=== PATIENT | female | born 1930 | race Caucasian/White ===

== ENCOUNTER → 2017-01-18 | Day surgery (SDC) | payer OTHER ==
[~2017-01-18] MED LIST: ACETAMINOPHEN/HYDROcodone 325 MG/5 MG TAB ONE; BUPIVACAINE/EPINEPHRINE 0.5% PF 30 ML VIAL ONE; CALC600T34 PO; CAPT25TA2 PO; KETOROLAC TROMETHAMINE 30 MG/ML (IVP) VIAL IV PUSH ONE; LACTATED RINGER'S 1000 ML INJ 1,000 ML ONE; LIDOCAINE 1.5%/EPINEPHrine 1:200,000 PF SOLN 30 ML AMP ONE; MIDAZOLAM HCL 2 MG/2 ML VIAL ONE; PROPOFOL 100 MG/10 ML INJ IV ONE; RALO1TAB13 PO; ZOCO40TA PO; ceFAZolin 2 GM PREMIX 50 ML ONE
--- NOTE | 2017-01-18 16:25 | TN ---
cc: ERICA CABRERA M.D. DATE OF SURGERY: 01/18/2017. PREOPERATIVE DIAGNOSIS: Compression fracture of L1, acute. POSTOPERATIVE DIAGNOSIS: Compression fracture of L1, acute. OPERATIVE PROCEDURE PERFORMED: Kyphoplasty of L1 and placement of a bone cement spacer. SURGEON: Erica Cabrera MD. ANESTHESIA: TIVA. ESTIMATED BLOOD LOSS Minimal. INDICATIONS FOR THE PROCEDURE: This patient is an 86-year-old female with significant back pain related to recent fracture that was sustained when she was moving furniture approximately three to four weeks ago. The patient had x-ray showing evidence of an acute fracture which was treated with medications and altered activities. An MRI scan showed this to be a recent fracture with retropulsion. She did not do well with conservative care. She followed with me in the office and x-rays at that time showed further subsidence. She presents now for kyphoplasty of the above level. DESCRIPTION OF THE PROCEDURE IN DETAIL: The patient WAS brought to the operating room and given limited sedation. She was rolled to a prone position on a radiolucent table. All pressure points were protected. The back was scrubbed alcohol followed by Hibiclens followed Chloraprep and draped sterilely. Antibiotics were given within a one hour time window and a time-out was done. AP and lateral fluoroscopic images were used identifying the L1 level. These were compared to preoperative studies. A single balloon approach was utilized from the left side using the Kyphon System. A sequence of local anesthesia, small incision and an awl placed through the pedicle and into the vertebral body crossing midline. A 20 mm Kyphon balloon was placed centrally and elevated. We had moderate correction of the deformity. On the back table, methyl methacrylate was mixed and after approximately 13 minutes was injected. We had no extravasation. The fill overall was quite good. The cement was allowed to harden. The tubes were removed. Intraoperative x-rays were obtained. The wound was irrigated, anesthetized and closed with 4-0 Vicryl followed by Dermabond. The patient was awakened and taken to recovery in satisfactory condition. MD TIM Marin/ABNER /2:51 PM /4:24 PM
== END | disposition home or self-care (01) ==
LOC: ESDC 12:16
PROVIDERS: ATTEND Orthopaedic Surgery Orthopaedic Surgery of the Spine
DX: S32.010A Wedge compression fracture of first lumbar vertebra, initial encounter for closed fracture (principal)
CPT/HCPCS: 01936; 22514; 72100; J0690; J1885; J2250; J3010; J7120